=== PATIENT | female | born 1980 | race Asian ===

== ENCOUNTER → 2017-04-16 | Outpatient (CLI) | payer BC ==
--- NOTE | 2017-04-16 18:12 | RAD ---
CT head without intravenous contrast History: Fall 2 weeks ago, headache, numbness. Comparison: None. Technique: Axial images are obtained of the head from the skull base through the vertex without IV contrast. Exposure: One or more of the following individualized dose reduction techniques were utilized for this examination: 1. Automated exposure control 2. Adjustment of the mA and/or kV according to patient size 3. Use of iterative reconstruction technique Findings: The ventricles are appropriate in size, shape, and location for the patient's age. No obvious intracranial mass, mass-effect, midline shift, hemorrhage or obvious acute infarction is identified. Basilar cisterns are patent. Bone windows demonstrate no acute calvarial abnormality. The visualized paranasal sinuses appear clear. Impression: 1. No acute intracranial process. Electronically signed by: Adrian Mandel MD (04/16/2017 6:09 PM) [facility]
== END | disposition home or self-care (01) ==
LOC: RAD 17:50
PROVIDERS: ATTEND Nurse Practitioner Family
DX: R51 Headache (principal); R20.0 Anesthesia of skin; W00.1XXA Fall from stairs and steps due to ice and snow, initial encounter; Y93.89 Activity, other specified; Y92.89 Other specified places as the place of occurrence of the external cause; Y99.8 Other external cause status
CPT/HCPCS: 70450

== ENCOUNTER 2021-07-12 10:50 | Emergency (ER) | payer BC ==
[~2021-07-12] VITALS: Ht 162.6 cm; Wt 83.9 kg
--- NOTE | 2021-07-12 11:09 | PHYS DOC ---
Past History Past Medical History: Hypothyroid Past Surgical History: No Surgical History Smoking: Cigarettes Alcohol Use: Rarely Drug Use: None General Adult HPI: HPI: Patient is a 41-year-old female here with multiple complaints. She reports that over the last year or so she has had intermittent episodes of nausea, vomiting, diarrhea. She denies abdominal pain, chest pain, dyspnea, palpitations. She denies dizziness. She reports that she has pain all over her body, which is also been intermittent for the past year. She reports that symptoms have essentially been more progressive the last 2 months. She does not have a primary care physician, she has made no attempt to find a primary care physician. She denies any changes in symptoms today. She denies hematemesis, melena or hematochezia. She denies urinary symptoms. LMP within the last month. She reports that her son "made me come to the ER today." She has been drinking plenty of fluids, she has been eating normally. She denies anorexia. She denies weight loss or weight gain. She indicates that she has a history of hypothyroidism, though she is uncertain of this diagnosis, and she is unable to articulate details of how this was diagnosed, she reports that at some point time she was given medications, though she cannot articulate any name of any medication, and she has been off of this for at least 2 years. No travel, hospitalization history. No recent antibiotic use. Review of Systems: Review of Systems: Constitutional: Denies fever or chills. Denies weight loss or weight gain. Denies anorexia. Eyes: Denies change in visual acuity HENT: Denies nasal congestion or sore throat Respiratory: Denies cough or shortness of breath Cardiovascular: Denies chest pain or edema GI: Denies abdominal pain. She reports intermittent nausea, vomiting, diarrhea . She denies melena, hematochezia or hematemesis. : Denies urinary symptoms. Musculoskeletal: Reports diffuse, nonfocal myalgias and arthralgias. Integument: Denies rash Neurologic: Denies headache, focal weakness or sensory changes Endocrine: Denies polyuria or polydipsia Lymphatic: Denies swollen glands Psychiatric: Anxiety Physical Exam: PE: Constitutional: Well developed, well nourished, no acute distress, non-toxic appearance. [] HENT: Normocephalic, atraumatic, oropharynx patent and clear, mucous membranes are moist. Eyes: Clear anicteric. Conjunctive are normal. Neck: Normal range of motion, no tenderness, supple, no stridor. [] Cardiovascular: Tachycardic, regular, +2 radial and +2 posterior tibial pulses bilaterally. Lungs & Thorax: Clear to auscultation bilaterally without rales, rhonchi or wheezes. No evidence of respiratory distress. Abdomen: William is soft, nondistended, nontender to palpation. Normal bowel sounds. No palpable pulsatile mass. No CVA tenderness. Skin: Warm, dry, no erythema, no rash. No jaundice. Back: No tenderness, no CVA tenderness. Full painless range of motion. No midline tenderness or step-offs. Extremities: No tenderness, no cyanosis, no clubbing, ROM intact, no edema. No limb deformity. No calf tenderness. No joint warmth, erythema or swelling. Neurologic: Alert and oriented X 3, normal motor function, normal sensory function, no focal deficits noted. Gait is steady, nonantalgic, no ataxia. Psychologic: Affect is somewhat bizarre and anxious, intermittently laughs inappropriately during H&P, overall cooperative and pleasant. EKG: EKG: [] Radiology/Procedures: Radiology/Procedures: [] Heart Score: C/O Chest Pain: No Risk Factors: Risk Factors: DM, Current or recent (<one month) smoker, HTN, HLP, family history of CAD, obesity. Risk Scores: Score 0 - 3: 2.5% MACE over next 6 weeks - Discharge Home Score 4 - 6: 20.3% MACE over next 6 weeks - Admit for Clinical Observation Score 7 - 10: 72.7% MACE over next 6 weeks - Early Invasive Strategies Course & Med Decision Making: Course & Med Decision Making Pertinent Labs and Imaging studies reviewed. (See chart for details) Patient declined any antiemetics or pain medication here. She has been taking Aleve with relief of pain. Her ED work-up is unremarkable. TSH is pending at this time. She clinically does not appear to be in any distress. Heart rate is 90. I gave her outpatient resources to establish care with a primary care physician. No indication for further invasive exams, emergent imaging or admission at this time. Return precautions are given. She verbalizes understanding. Ashley Disclaimer: Ashley Disclaimer: This electronic medical record was generated, in whole or in part, using a voice recognition dictation system. Departure Departure: Impression: Primary Impression: Nausea vomiting and diarrhea Additional Impression: Myalgia Disposition: HOME / SELF CARE / HOMELESS Condition: STABLE Referrals: MONIKA JONES (PCP) Patient Instructions: Myalgia, Adult, Nausea and Vomiting Additional Instructions: You may continue taking [id number] Aleve or [id number] Tylenol for pain. Stay hydrated, drink plenty of fluids. Use the nausea medicine as needed/as directed. Return for acute changes in symptoms, severe abdominal pain, chest pain, shortness of breath, if you are acutely injured or sustained any trauma, or for any other concerns. Please contact your primary care physician for follow-up abdominally this problem but also for routine care. Scripts Ondansetron (ONDANSETRON ODT) 4 Mg Tab.rapdis 1 TAB PO PRN Q6-8HRS for nausea and vomiting, #20 TAB Prov: OMA ANDERSON DO 07/12/21 OMA ANDERSON DO Jul 12, 2021 11:09
[2021-07-12] MEDS ORDERED: IV NORMAL SALINE 1,000ML 1,000 ML IV ONE (11:30)
[2021-07-12 11:45] LABS: BASO # 0.1 x10^3/uL (0.0-0.2); BASO % 1 % (0-3); EOS % 0 % (0-3); HEMATOCRIT 41.5 % (36.0-47.0); HEMOGLOBIN 13.9 g/dL (12.0-15.5); LYMPH # 0.2 x10^3/uL (1.0-4.8); LYMPH % 3 % (24-48); MEAN CORPUSCULAR HEMOGLOBIN 29 pg (25-35); MEAN CORPUSCULAR HGB CONC 34 g/dL (31-37); MEAN CORPUSCULAR VOLUME 86 fL (79-100); MONO # 0.3 x10^3/uL (0.0-1.1); MONO % 3 % (0-9); NEUT # 8.7 x10^3uL (1.8-7.7); NEUT % 93 % (31-73); PLATELET COUNT 284 x10^3/uL (140-400); RED BLOOD COUNT 4.82 x10^6/uL (3.50-5.40); RED CELL DISTRIBUTION WIDTH 12.4 % (11.5-14.5); WHITE BLOOD COUNT 9.3 x10^3/uL (4.0-11.0)
[2021-07-12 12:04] LABS: CALCIUM 8.5 mg/dL (8.5-10.1); CREATININE 0.8 mg/dL (0.6-1.0); GFR 78.7; POTASSIUM 3.7 mmol/L (3.5-5.1)
[2021-07-12 12:10] LABS: ALBUMIN 3.6 g/dL (3.4-5.0); ALBUMIN/GLOBULIN RATIO 0.9 (1.0-1.7); PHOSPHORUS 2.7 mg/dL (2.6-4.7); TOTAL BILIRUBIN 0.6 mg/dL (0.2-1.0); TOTAL PROTEIN 7.6 g/dL (6.4-8.2)
[2021-07-12 12:42] LABS: BACTERIA,URINE FEW /HPF (0-FEW); CLARITY,URINE CLEAR; COLOR,URINE YELLOW; GLUCOSE,URINE NEG (NEG); NITRITE,URINE NEG (NEG); SQUAMOUS EPITHELIAL CELL,UR MANY /LPF; U PREG PATIENT NEGATIVE (NEG)
[2021-07-12 13:30] VITALS: BP 130/80
[2021-07-12] MEDS ORDERED: ONDA4TAB12 PO (13:44)
== END 2021-07-12 13:50 | disposition home or self-care (01) ==
LOC: ER 10:50
DX: R11.2 Nausea with vomiting, unspecified (principal); R19.7 Diarrhea, unspecified; M79.10 Myalgia, unspecified site; F17.210 Nicotine dependence, cigarettes, uncomplicated; E03.9 Hypothyroidism, unspecified
CPT/HCPCS: 36415; 80053; 81001; 81025; 82550; 83690; 83735; 84100; 84443; 85025; 96360; 99283; J7030